=== PATIENT | female | born 1950 | race Asian ===

== ENCOUNTER 2017-01-01 07:28 | Day surgery (SDC) | payer OTHER ==
[2016-12-25 12:06] VITALS: BMI 18.3
[2017-01-01] MEDS ORDERED: LIDOCAINE HCL 2% 100 MG/5 ML DISP.SYRIN ONE (07:58)
[2017-01-01] MEDS ORDERED: SUCCINYLCHOLINE CHLORIDE 200 MG/10 ML VIAL ONE (07:58)
[2017-01-01] MEDS ORDERED: PROPOFOL 20 ML ONE ×2 (07:58)
[2017-01-01] MEDS ORDERED: ePHEDrine SULFATE 50 MG/1 ML AMPULE ONE (07:58)
[2017-01-01] MEDS ORDERED: ROCURONIUM BROMIDE 50 MG/5 ML VIAL ONE (07:58)
[2017-01-01] MEDS ORDERED: MIDAZOLAM HCL 2 MG/2 ML SINGLE DOSE VIAL ONE (07:58)
[2017-01-01] MEDS ORDERED: PHENYLEPHRINE HCL 10 MG/1 ML SINGLE DOSE VIAL ONE (07:58)
[2017-01-01] MEDS ORDERED: DESFLURANE GAS 240 ML BOTTLE IH ONE (11:26)
[2017-01-01] MEDS ORDERED: ONDANSETRON 4 MG/2 ML VIAL IVPUSH PRN (14:58)
[2017-01-01] MEDS ORDERED: oxyCODONE HCL 5 MG TABLET PO PRN (14:58)
[2017-01-01] MEDS ORDERED: PROMETHAZINE HCL 25 MG/1 ML VIAL IVPUSH PRN (14:58)
[2017-01-01] MEDS ORDERED: LACTATED RINGERS SOLUTION 1,000 ML IV SCH (15:00)
[2017-01-01] MEDS ORDERED: PROMETHAZINE HCL 25 MG/1 ML VIAL ONE (15:59)
[2017-01-01 19:07] VITALS: BP 128/81; PULSE 79; TEMP 98
--- NOTE | 2017-01-03 15:00 | PATH ---
Surgical Pathology Report Patient Name: CARLITOS DIOP [facility]. Rec. #: [id number] /Age/Gender: 1950 (Age: 66) / F Account: [id number] Location: [facility] Taken: 01/01/2017 Received: 01/01/2017 Reported: 01/03/2017 Physicians: Desiree Ruano M.D. Specimen(s) Received A: RIGHT BREAST SCAR B: RIGHT BREAST IMPLANT Clinical History History of left breast cancer, loss of nipple Final Diagnosis A. SKIN, RIGHT BREAST, EXCISION: SKIN WITH DERMAL SCAR. 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 Electronically Signed Shai cM M.D. Gross Description A. Received in formalin labeled "right breast scar," are 2 , elliptical, unoriented portions of skin averaging 5.0 x 0.5 cm. The epidermal surfaces display well-healed scars. Director Of Physician Practices sections are submitted in one cassette. B. Received fresh labeled "right breast implant," is a 9 cm in diameter x 3 cm in depth clear, rubbery breast implant. No soft tissue is present. No sections are submitted, gross only. 01/02/2017 [place]01/02/2017
--- NOTE | 2017-02-17 18:15 | OP ---
DATE OF OPERATION: 01/01/2017 PREOPERATIVE DIAGNOSIS: Status post left mastectomy for cancer and right breast augmentation for symmetry. POSTOPERATIVE DIAGNOSIS: Status post left mastectomy for cancer and right breast augmentation for symmetry. PROCEDURE: Revision of right breast reconstruction with attempt to raise the right inframammary fold, right breast implant removal and replacement, right breast capsulotomy, left nipple reconstruction incorporating the preexisting mastectomy scar utilizing a star-flap technique, fat grafting to bilateral breast, particularly the superomedial area from abdomen, bilateral flank, and bilateral inner thigh donor sites. SURGEON: Leonid Ruano MD ASSISTANTS: None. COMPLICATIONS: None. ESTIMATED BLOOD LOSS: Minimal. ANESTHESIA: General endotracheal anesthesia. SPECIMENS: 1. Right breast scar. 2. Right breast implant for gross only. IMPLANTS: 1. Right breast implant: [place] 150 mL breast implant was placed (reference number [id number], lot number [id number], serial number [id number], expiration July 06, 2020). 2. Right breast AlloDerm Contour Medium Perforated (lot [id number], reference [id number], expiration August 2018). INDICATION FOR PROCEDURE: The patient is status post left mastectomy for cancer with implant-based reconstruction. She complains of asymmetry and desires raising her right inframammary fold. She has rippling of bilateral superomedial breast with thin skin for which we discussed fat grafting to the area from the abdomen, flank, and inner thigh donor sites. Patient also desires left nipple reconstruction. Consent was obtained for the procedure as well as a possibility of acellular dermal matrix placement. Questions were answered. She was marked in the sitting position in the preoperative area. Risks of the procedure were reviewed and include but not limited to infection, bleeding, wound healing problems, blood clots in her leg, groin, or lungs, scarring, persistent asymmetry, need for further fat grafting, ALCL from implants, implant monitoring needed, implant rupture, capsular contracture. All her questions were answered, and she agreed to proceed. Please note, we discussed possible loss of nipple reconstruction given her scarring. We also discussed possibility of atrophy of the reconstructed left nipple. Patient plans on undergoing areolar tattoo in the future. All her questions were answered, and she agreed to proceed. DESCRIPTION OF PROCEDURE: Patient was taken to the operating room and placed supine on the operating room table. Timeout procedure was performed. Anesthesia induced with general endotracheal anesthesia. TEDs and sequential compression devices were placed on her bilateral lower extremities for deep venous thrombosis prophylaxis. Surgical sites were prepped and draped in a standard sterile manner. Attention was first turned to the right breast. Planned surgical sites were injected with 1% lidocaine with epinephrine for hemostasis and postop pain control. Right breast scar was excised with a number 15 blade and passed off the field and sent for pathology. The area was deepened with electrocautery, and the implant appeared to be rippled, intact but rippled, and was thus removed and sent for permanent pathology, and a new implant was placed of the same size. Wound was copiously irrigated with irrigation including Ancef, bacitracin, and gentamicin antibiotic irrigation. A capsulotomy was performed on the right breast to release it superomedially. Capsulotomy in a checkered pattern with care to preserve the overlying blood supply and skin was performed to loosen the pocket. Raising the right inframammary fold was performed with 2-0 PDS sutures to the inframammary fold soft tissues to the underlying rib periosteum and 0.25% Marcaine plain was used to anesthetize these sites. In this manner, right inframammary fold was elevated and resuspended with several of these sutures. Wound was copiously irrigated, and hemostasis was achieved. Gloves were changed and [place] Funnel used in utilizing the no-touch technique after re-draping. The 150 mL [place] silicone implant was placed. was used to protect the underlying implant, and the wound was closed with a deep layer of 2-0 Vicryl sutures to close the capsule and superficial fascia with the knots on the outside. Interrupted intradermal buried 3-0 Monocryl, running 4-0 Monocryl in a subcuticular manner, and several simple interrupted 4-0 Prolene sutures to reinforce. Attention was then turned to the left breast. In preoperative area in the sitting position, a superior-based star flap was planned and marked out to recreate the nipple-areolar complex. The superiorly-based flap would incorporate the preexisting mastectomy scar and provide good symmetry. The flap was marked, transversely oriented in the preexisting scar. The transverse limbs were adjacent to the scar, and the central vertical limb, which projected superiorly, incorporated the scar. Incision was made with a number 15 blade. The nipple flap was not injected with 1% lidocaine with epinephrine in an effort to clearly visualize blood supply. The flap was warm and well perfused including the inferior projection which traversed the mastectomy scar tissue, at all times with good perfusion of the superior tip which crossed the scar tissue, and the flap had good capillary refill throughout. Dissection included deep subcutaneous fat to provide bulk to the nipple-areolar complex. Nipple-areolar complex limbs were wrapped around and sutured with several 5-0 chromic simple interrupted sutures and 5-0 Prolene simple interrupted sutures. The lateral and inferior limb of the superior-based pedicle nipple star flap were closed with deep layer of interrupted intradermal buried 3-0 Monocryl, superficial 4-0 Monocryl in a subcuticular manner, and superficial running 5-0 nylon sutures. Care was taken to protect the underlying implant. Attention was then turned to the fat grafting. Abdomen, flanks, and bilateral inner thighs were prepped and draped in a standard sterile manner. Due to the patient's thin overlying skin, number 3- and 4-mm cannulas were used. A number 15 blade was used to make the incision for the liposuction sites. Tumescent infiltration was instilled, and liposuction using the MicroAire liposuction was performed. Total tumescent 1500 mL, total aspirate 1300 mL with 400 mL of fat. Fat was prepared utilizing the Aquavage System. Fat was injected superomedially bilaterally through incisions made with number 15 blade utilizing the fat injection cannula. Left side was injected with 57 mL of fat, right side with 24 mL of fat, which provided good contour. Fat grafting sites were closed with 5-0 nylon sutures. In summary, the inframammary fold was raised 2 cm on the right side for better symmetry. Please note, prior to closure of the right breast, AlloDerm Tissue Matrix RTU Contour Medium Perforated was cut to fit the inferior flap and re-suspend it the inframammary fold to provide more reinforcement in an effort to provide raising in the inframammary fold. Lot number [id number], reference [id number], expiration August 2018, was placed in the right breast and was cut to fit the inferior flap. Right breast wound was closed with Dermabond, 4 x 4 gauze, and ABD pads. Dermabond was placed on the fat injection sites. Nipple-areolar complex was covered with bacitracin, eye patch with a hole cut to prevent pressure on the reconstructed nipple with 4 x 4 gauze, fluffs, and ABD pads. Liposuction sites were covered with bacitracin, Telfa, and Tegaderm. Surgical bra was applied. The nipple-areolar complex was warm and well perfused at the conclusion of the procedure. The right acellular dermal matrix was soaked in antibiotic irrigation in 2 separate baths prior to placing it in the wound in the proper orientation with the dermis up. LEONID RUANO M.D. [id number]
== END 2017-01-01 18:30 | disposition home or self-care (01) ==
LOC: FASU 07:28
PROVIDERS: ATTEND Surgery
PROC: 0HUX07Z Supplement Left Nipple with Autologous Tissue Substitute, Open Approach (ICD-10-PCS; 2017-01-01)
PROC: 0HRT0JZ Replacement of Right Breast with Synthetic Substitute, Open Approach (ICD-10-PCS; 2017-01-01)
PROC: 0HPT0JZ Removal of Synthetic Substitute from Right Breast, Open Approach (ICD-10-PCS; 2017-01-01)
PROC: 0HRT0JZ Replacement of Right Breast with Synthetic Substitute, Open Approach (ICD-10-PCS; 2017-01-01)
PROC: 0HRV07Z Replacement of Bilateral Breast with Autologous Tissue Substitute, Open Approach (ICD-10-PCS; principal; 2017-01-01 10:24)
PROC: 0HRV37Z Replacement of Bilateral Breast with Autologous Tissue Substitute, Percutaneous Approach (ICD-10-PCS; 2017-01-01 10:24)
PROC: 0HNT0ZZ Release Right Breast, Open Approach (ICD-10-PCS; 2017-01-01 10:24)
DX: N65.1 Disproportion of reconstructed breast (principal); Z85.3 Personal history of malignant neoplasm of breast; Z90.12 Acquired absence of left breast and nipple; Z98.82 Breast implant status; N65.0 Deformity of reconstructed breast
CPT/HCPCS: 88300-TC; 88304-TC; 94760